=== PATIENT | female | born 1990 | race American Indian/Alaskan Native ===

== ENCOUNTER 2018-12-26 17:01 | Emergency (ER) | payer BC, OTHER ==
--- NOTE | 2018-12-26 17:47 | EDM.PDOC ---
ED HPI GENERAL MEDICAL PROBLEM - General Chief Complaint: Cardiovascular Problem Stated Complaint: HIGH BLOOD PRESSURE Time Seen by Provider: 12/26/18 17:38 Source of Information: Reports: Patient History Limitations: Reports: No Limitations - History of Present Illness INITIAL COMMENTS - FREE TEXT/NARRATIVE: HISTORY AND PHYSICAL: History of present illness: Patient is a 28-year-old female presents to the ED today for concern of feeling anxious and concerned about her blood pressure. Patient states she delivered a baby about a month 20 month and half ago and have preeclampsia. States that since then, she feels anxious about her blood pressure and checked it today at work and it was slightly high so she decided to come into the ED. Patient states she also took a first dose of Flagyl today and forgot to take her antianxiety medication today. Patient does express that she thinks her underlying anxiety is the main cause of her symptoms today. Patient states she did call the clinic today because she felt that the Flagyl was causing her to feel "off" and they had switched her to vaginal suppository Flagyl today. Patient states she has been following accordingly with her SECURITY ASSOCIATE for the plan of care and follow-up after delivery. Patient denies fever, chills, chest pain, shortness of breath, or cough. Denies headache, neck stiff ness, change in vision, syncope, or near syncope. Denies nausea, vomiting, abdominal pain, diarrhea, constipation, or dysuria. Has not noted any blood in urine or stool. Patient has been eating and drinking appropriately. Review of systems: As per history of present illness and below otherwise all systems reviewed and negative. Past medical history: As per history of present illness and as reviewed below otherwise noncontributory. Surgical history: As per history of present illness and as reviewed below otherwise noncontributory. Social history: See social history for further information Family history: As per history of present illness and as reviewed below otherwise noncontributory. Physical exam: General: Patient is alert, oriented, and in no acute distress. Patient sitting comfortably on exam table. HEENT: Atraumatic, normocephalic, pupils equal and reactive bilaterally, negative for conjunctival pallor or scleral icterus, mucous membranes moist, TMs normal bilaterally, throat clear, neck supple, nontender, trachea midline. No drooling or trismus noted. No meningeal signs. No hot potato voice noted. Lungs: Clear to auscultation, breath sounds equal bilaterally, chest nontender. Heart: S1S2, regular rate and rhythm without overt murmur Abdomen: Soft, nondistended, nontender. Negative for masses or hepatosplenomegaly. Negative for costovertebral tenderness. Pelvis: Stable nontender. Genitourinary: Deferred. Rectal: Deferred. Skin: Intact, warm, dry. No lesions or rashes noted. Extremities: Atraumatic, negative for cords or calf pain. Neurovascular unremarkable. Neuro: Awake, alert, oriented. Cranial nerves II through XII unremarkable. Cerebellum unremarkable. Motor and sensory unremarkable throughout. Exam nonfocal. Notes: Discussed the importance for follow-up with primary care provider. Voices understanding and is agreeable to plan of care. Denies any further questions or concerns at this time. Diagnostics: CBC, CMP, UA, TSH, EKG Therapeutics: None Prescription: None Impression: Medical screening exam history of anxiety Plan: 1. You can alternate ibuprofen or Tylenol as directed for pain and discomfort. 2. Follow-up with your SECURITY ASSOCIATE and primary care provider as discussed. 3. Return to the ED as needed and as discussed. Definitive disposition and diagnosis as appropriate pending reevaluation and review of above. Headache Pain Score (Numeric/FACES): 1 - Related Data Allergies Allergy/AdvReac Type Severity Reaction Status Date / Time adhesive tape Allergy Rash Verified 12/26/18 17:21 cefaclor [From Ceclor] Allergy Rash Verified 12/26/18 17:21 Home Meds: Home Meds Acetaminophen [Tylenol Extra Strength] 500 mg PO Q4H PRN 08/10/18 [History] Cetirizine [ZyrTEC] 10 mg PO DAILY 08/10/18 [History] Desvenlafaxine Succinate [Desvenlafaxine Succinate ER] 100 mg PO DAILY 08/10/18 [History] LORazepam 1 mg PO ASDIRECTED PRN 08/10/18 [History] Lansoprazole [Prevacid] 30 mg PO DAILY 08/10/18 [History] Elmiron 100 mg PO DAILY 12/26/18 [History] Levonorgestrel [Kyleena] 1 dose IUTERINE ONETIME 12/26/18 [History] metroNIDAZOLE [Flagyl] 500 mg PO BID 12/26/18 [History] Past Medical History HEENT History: Reports: None Other HEENT History: wears glasses/contacts Cardiovascular History: Reports: Hypertension, PVD Other Cardiovascular History: hypertension during Respiratory History: Reports: Asthma Other Respiratory History: exercise induced- does not use inhaler Gastrointestinal History: Reports: Chronic Diarrhea, GERD, Inflammatory Bowel Disease Genitourinary History: Reports: Other (See Below) Other Genitourinary History: Interstitial cystitis SECURITY ASSOCIATE History: Reports: Other SECURITY ASSOCIATE History: hx of pre-eclampsia Musculoskeletal History: Reports: Fibromyalgia Neurological History: Reports: Migraines Other Neuro History: headaches/migraines due to Fibromyalgia Psychiatric History: Reports: Anxiety, Depression Endocrine/Metabolic History: Reports: None Hematologic History: Reports: None Immunologic History: Reports: None Oncologic (Cancer) History: Reports: None Dermatologic History: Reports: None Other Dermatologic History: acne - Infectious Disease History Infectious Disease History: Reports: Chicken Pox, Shingles - Past Surgical History Head Surgeries/Procedures: Reports: None HEENT Surgical History: Reports: Adenoidectomy, Tonsillectomy, Other (See Below) Respiratory Surgical History: Reports: None GI Surgical History: Reports: None, Cholecystectomy Endocrine Surgical History: Reports: None Oncologic Surgical History: Reports: None Social & Family History - Family History Family Medical History: Noncontributory HEENT: Reports: None Cardiac: Reports: Hypertension Respiratory: Reports: None GI: Reports: None : Reports: None OBGYN: Reports: None Musculoskeletal: Reports: None Neurological: Reports: None Psychiatric: Reports: Emotional Problems Endocrine/Metabolic: Reports: None, Other (See Below) Other Endocrine/Metabolic Family History: Hypoglycemia Hematologic: Reports: None Immunologic: Reports: None Dermatologic: Reports: None Oncologic: Reports: Other (See Below) Other Oncologic Family History: Rectal cancer that metastasize to lungs - Tobacco Use Smoking Status *Q: Current Every Day Smoker Years of Tobacco use: 10 Packs/Tins Daily: 1 - Caffeine Use Caffeine Use: Reports: Coffee, Soda - Recreational Drug Use Recreational Drug Use: No ED ROS GENERAL - Review of Systems Review Of Systems: ROS reveals no pertinent complaints other than HPI. ED EXAM, GENERAL - Physical Exam Exam: See Below (See dictation) Course - Vital Signs Last Recorded V/S: Last Vital Signs Temp 37.3 C 12/26/18 17:17 Pulse 79 12/26/18 17:17 Resp 18 12/26/18 17:17 BP 149/93 H 12/26/18 17:17 Pulse Ox 100 12/26/18 17:17 - Orders/Labs/Meds Orders: Active Orders 24 hr Category Date Time Status EKG 12 Lead [EKG Documentation Completion] [RC] STAT Care 12/26/18 17:42 Active Labs: Laboratory Tests 12/26/18 12/26/18 Range/Units 17:53 17:53 WBC 11.15 H (4.0-11.0) K/uL RBC 4.78 (4.30-5.90) M/uL Hgb 13.3 (12.0-16.0) g/dL Hct 42.0 (36.0-46.0) % MCV 87.9 (80.0-98.0) fL MCH 27.8 (27.0-32.0) pg MCHC 31.7 (31.0-37.0) g/dL RDW Std Deviation 47.0 (28.0-62.0) fl RDW Coeff of Godwin 15 (11.0-15.0) % Plt Count 370 (150-400) K/uL MPV 10.00 (7.40-12.00) fL Neut % (Auto) 59.5 (48.0-80.0) % Lymph % (Auto) 31.5 (16.0-40.0) % Letcher % (Auto) 7.4 (0.0-15.0) % Eos % (Auto) 1.3 (0.0-7.0) % Baso % (Auto) 0.3 (0.0-1.5) % Neut # (Auto) 6.6 H (1.4-5.7) K/uL Lymph # (Auto) 3.5 H (0.6-2.4) K/uL Letcher # (Auto) 0.8 (0.0-0.8) K/uL Eos # (Auto) 0.1 (0.0-0.7) K/uL Baso # (Auto) 0.0 (0.0-0.1) K/uL Nucleated RBC % 0.0 /100WBC Nucleated RBCs # 0 K/uL Sodium 140 (136-145) mmol/L Potassium 3.8 (3.5-5.1) mmol/L Chloride 101 (98-107) mmol/L Carbon Dioxide 27.7 (21.0-32.0) mmol/L BUN 8 (7.0-18.0) mg/dL Creatinine 0.8 (0.6-1.0) mg/dL Est Cr Clr Drug Dosing 88.79 mL/min Estimated GFR (MDRD) > 60.0 ml/min Glucose 98 (74-106) mg/dL Calcium 9.7 (8.5-10.1) mg/dL Total Bilirubin 0.2 (0.2-1.0) mg/dL AST 18 (15-37) IU/L ALT 15 (14-63) IU/L Alkaline Phosphatase 98 (46-116) U/L Total Protein 8.1 (6.4-8.2) g/dL Albumin 4.3 (3.4-5.0) g/dL Globulin 3.8 (2.6-4.0) g/dL Albumin/Globulin Ratio 1.1 (0.9-1.6) TSH 3rd Generation 1.23 (0.36-3.74) uIU/mL Departure - Departure Time of Disposition: 19:10 Disposition: Home, Self-Care 01 Clinical Impression: Encounter for medical screening examination Referrals: PCP,None [Primary Care Provider] - Forms: ED Department Discharge Additional Instructions: The following information is given to patients seen in the emergency department who are being discharged to home. This information is to outline your options for follow-up care. We provide all patients seen in our emergency department with a follow-up referral. The need for follow-up, as well as the timing and circumstances, are variable depending upon the specifics of your emergency department visit. If you don't have a primary care physician on staff, we will provide you with a referral. We always advise you to contact your personal physician following an emergency department visit to inform them of the circumstance of the visit and for follow-up with them and/or the need for any referrals to a consulting specialist. The emergency department will also refer you to a specialist when appropriate. This referral assures that you have the opportunity for follow-up care with a specialist. All of these measure are taken in an effort to provide you with optimal care, which includes your follow-up. Under all circumstances we always encourage you to contact your private physician who remains a resource for coordinating your care. When calling for follow-up care, please make the office aware that this follow-up is from your recent emergency room visit. If for any reason you are refused follow-up, please contact the [facility] Emergency Department at and asked to speak to the emergency department charge nurse. [facility] [address] [place] [address] [facility] [address] [place] [address] 1. You can alternate ibuprofen or Tylenol as directed for pain and discomfort. 2. Follow-up with your SECURITY ASSOCIATE and primary care provider as discussed. 3. Return to the ED as needed and as discussed. - My Orders Last 24 Hours: My Active Orders 12/26/18 17:42 EKG 12 Lead [EKG Documentation Completion] [] STAT - Assessment/Plan Last 24 Hours: My Active Orders 12/26/18 17:42 EKG 12 Lead [EKG Documentation Completion] [RC] STAT
[2018-12-26 18:42] LABS: CHLORIDE,CL 101 mmol/L (98-107); SODIUM,NA 140 mmol/L (136-145)
== END 2018-12-26 19:20 | disposition home or self-care (01) ==
LOC: MW.ED 17:01
DX: Z13.9 Encounter for screening, unspecified (principal); I10 Essential (primary) hypertension; F17.210 Nicotine dependence, cigarettes, uncomplicated; F41.9 Anxiety disorder, unspecified; Z79.899 Other long term (current) drug therapy; Z88.8 Allergy status to other drugs, medicaments and biological substances; Z91.048 Other nonmedicinal substance allergy status
CPT/HCPCS: 36415; 80053; 84443; 85025; 93005; 99283; 99284-25

== ENCOUNTER 2019-08-21 14:40 | Emergency (ER) | payer BC ==
--- NOTE | 2019-08-21 15:54 | CR ---
INDICATION: Fall, slipped on ice TECHNIQUE: X-ray left ankle, three views COMPARISON: None available FINDINGS: There is soft tissue swelling laterally. Negative for acute fracture or dislocation. The ankle mortise is intact. No radiopaque foreign body is seen. IMPRESSION: Soft tissue swelling laterally without acute fracture or dislocation. Dictated by Faith Carrillo MD @ 08/21/2019 3:52:26 PM Dictated by: Faith Carrillo MD @ 08/21/2019 15:52:36 (Electronically Signed)
--- NOTE | 2019-08-21 15:59 | EDM.PDOC ---
ED HPI GENERAL MEDICAL PROBLEM - General Chief Complaint: Lower Extremity Injury/Pain Stated Complaint: POSSIBLE BROKEN LEFT ANKLE Time Seen by Provider: 08/21/19 14:57 - History of Present Illness INITIAL COMMENTS - FREE TEXT/NARRATIVE: HPI 28-year-old female presents with pain and swelling inferior to her left lateral malleolus that occurred after rolling her ankle last night while wearing high heeled boots in the setting of EtOH intoxication. Denies further injuries. Notes difficulty with ambulation. ROS with no recent constitutional symptoms. Exam HR 91, RR 17, BP 119/72, T 36.3C, SaO2 95% on room air. Gen: Pleasant, nontoxic-appearing, resting comfortably. HEENT: NC, AT, PEERL, EOMI. Resp: Unlabored respirations with a normal work of breathing. Card: Extremities warm and well perfused. GI: Non-distended. : Deferred MSK: left calf without visible or palpable trauma, muscle compartments soft and non-tender to palpation. Lopez test with plantar flexion. No tenderness to palpation over the tibia or fibula. Ankle with swelling inferior to the lateral malleolus, otherwise visually normal with ecchymosis inferior to the lateral malleolus. Mild tenderness over the posterior lateral malleolus, no tenderness over the posterior medial malleolus. Able to minimally dorsiflex, plantarflex, dagoberto, and invert the ankle with full functional range of motion . Foot visually normal without tenderness to palpation, specifically including the navicular bone and the base of the 5th metatarsal. Able flex and extend all toes. Muscle compartments of the foot are soft. Neurovascular 2+ DP and PT pulses. Sensation grossly intact to touch on the calf. Sensation intact to touch on all toes, first web space, the medial, lateral, plantar and dorsal surfaces of the foot. Neuro: alert and oriented 3, no facial asymmetry, vision and hearing WNL. Heme/Lymph: Deferred Skin: Normal color with no visible lesions (other than noted above). Psych: Mood and affect appropriate. XR L ankle: there is soft tissue swelling laterally. Negative for acute fracture or dislocation. The ankle more tests is intact. No radiopaque foreign body is seen. MDM Previous chart, nursing note, and vitals reviewed. A: 28-year-old female presents with pain and swelling inferior to her left lateral malleolus that occurred after rolling her ankle last night while wearing high heeled boots in the setting of EtOH intoxication. DDx & Evaluation: CMS intact, imaging without evidence of fracture or dislocation. Patient with a left ankle sprain. Patient already with crutches, provided with air splint, instructed to follow up with PCP and 4-5 days. NSAIDs for pain control. Impression: left ankle sprain. Left Ankle Pain Score (Numeric/FACES): 6 - Related Data Allergies Allergy/AdvReac Type Severity Reaction Status Date / Time adhesive tape Allergy Rash Verified 08/21/19 14:53 cefaclor [From Ceclor] Allergy Rash Verified 08/21/19 14:53 chocolate flavor Allergy Hives Verified 08/21/19 14:53 Home Meds: Home Meds Acetaminophen [Tylenol Extra Strength] 500 mg PO Q4H PRN 08/10/18 [History] Cetirizine [ZyrTEC] 10 mg PO DAILY 08/10/18 [History] Desvenlafaxine Succinate [Desvenlafaxine Succinate ER] 100 mg PO DAILY 08/10/18 [History] LORazepam 1 mg PO ASDIRECTED PRN 08/10/18 [History] Lansoprazole [Prevacid] 30 mg PO DAILY 08/10/18 [History] Elmiron 100 mg PO DAILY 12/26/18 [History] Levonorgestrel [Kyleena] 1 dose IUTERINE ONETIME 12/26/18 [History] Past Medical History HEENT History: Reports: None Other HEENT History: wears glasses/contacts Cardiovascular History: Reports: Hypertension, PVD Other Cardiovascular History: hypertension during Respiratory History: Reports: Asthma Other Respiratory History: exercise induced- does not use inhaler Gastrointestinal History: Reports: Chronic Diarrhea, GERD, Inflammatory Bowel Disease Genitourinary History: Reports: Other (See Below) Other Genitourinary History: Interstitial cystitis 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[employer]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 DESIGNER History: hx of pre-eclampsia Musculoskeletal History: Reports: Fibromyalgia Neurological History: Reports: Migraines Other Neuro History: headaches/migraines due to Fibromyalgia Psychiatric History: Reports: Anxiety, Depression Endocrine/Metabolic History: Reports: None Hematologic History: Reports: None Immunologic History: Reports: None Oncologic (Cancer) History: Reports: None Dermatologic History: Reports: None Other Dermatologic History: acne - Infectious Disease History Infectious Disease History: Reports: Chicken Pox - Past Surgical History Head Surgeries/Procedures: Reports: None HEENT Surgical History: Reports: Adenoidectomy, Tonsillectomy, Other (See Below) Respiratory Surgical History: Reports: None GI Surgical History: Reports: None, Cholecystectomy Female Surgical History: Reports: Section Endocrine Surgical History: Reports: None Oncologic Surgical History: Reports: None Social & Family History - Family History Family Medical History: Noncontributory HEENT: Reports: None Cardiac: Reports: Hypertension Respiratory: Reports: None GI: Reports: None : Reports: None OBGYN: Reports: None Musculoskeletal: Reports: None Neurological: Reports: None Psychiatric: Reports: Emotional Problems Endocrine/Metabolic: Reports: None, Other (See Below) Other Endocrine/Metabolic Family History: Hypoglycemia Hematologic: Reports: None Immunologic: Reports: None Dermatologic: Reports: None Oncologic: Reports: Other (See Below) Other Oncologic Family History: Rectal cancer that metastasize to lungs - Tobacco Use Smoking Status *Q: Current Every Day Smoker Years of Tobacco use: 12 Packs/Tins Daily: 1 - Caffeine Use Caffeine Use: Reports: Coffee, Energy Drinks, Soda, Tea - Recreational Drug Use Recreational Drug Use: No Review of Systems - Review of Systems Review Of Systems: See Below ED EXAM, GENERAL - Physical Exam Exam: See Below Course - Vital Signs Last Recorded V/S: Last Vital Signs Temp 36.3 C 08/21/19 14:54 Pulse 91 08/21/19 14:54 Resp 17 08/21/19 14:54 BP 118/72 08/21/19 14:54 Pulse Ox 95 08/21/19 14:54 Departure - Departure Time of Disposition: 15:58 Disposition: Home, Self-Care 01 Clinical Impression: Ankle sprain - Discharge Information Referrals: PCP,None [Primary Care Provider] - Additional Instructions: You were in seen in the [facility] Emergency Department for evaluation of injuries to her left ankle, your found have a sprain. Please use your crutches and air splint. You may use ibuprofen and acetaminophen instructed below. Please read and follow all of the instructions below. Please follow up with your primary care physician and 4-5 days for repeat evaluation. When calling for follow-up care, please make the office aware that this follow-up is from your recent emergency room visit. If for any reason you are refused follow-up, please contact the [facility] Emergency Department at and asked to speak to the emergency department charge nurse. Your care today was limited to identifying and treating emergent medical problems only. Many people have subtle differences in their test results that require follow up with their outpatient physician(s) to correctly determine if this represents a normal variation or concerning abnormality with respect to your specific health. The care given to you today was limited to identifying and treating emergent medical problems - you need to request a copy of all of your medical records from today's visit and follow up with your outpatient physician(s) to review both today's visit and your overall health. If you have any new symptoms or if you are at all concerned about your health please return immediately to the emergency department. Ankle Sprain * You were diagnosed with an ankle sprain, these are most commonly injuries of the ligaments attaching your fibula to your ankle (labeled PTFL and ATFL below) . Based upon your exam today it is unclear how severely you injured these ligaments. * You should treat your injury with rest, gentle compression with Armond bandage, elevation when you are sitting or lying down, and reduction in weightbearing activity until your pain is significantly better. You may begin resuming physical activity as allowed by mild pain. * If you still have significant symptoms after 4-5 days please follow-up with your primary care provider. * Please use your crutches as needed. Please read the instructions below regarding crutch use. * You may take 600 mg of ibuprofen every 6 hours as needed for pain. You may take 1000 mg of acetaminophen every 6 hours for pain above that controlled by the ibuprofen. Please read the drug warnings below. Treatment Once your pain begins improving in your swelling has started decreasing you may find benefit from performing the following exercises 2-3 times daily: * Perform foot-ankle circles to improve the range of motion in your injured ligaments. [place] the foot at the ankle, moving the foot up and down by flexing and extending the ankle. Perform 20 rotations clockwise, then 20 rotations counterclockwise. The exercise is performed twice daily. * Please strengthen your foot by returning to normal walking as tolerated by pain. If you are unable to walk you may perform toe curls 3 times a day. Please return to the emergency department or promptly call your primary care doctor if you develop any of the following: * Significantly worsening pain. * Decreased sensation in your foot. * A cold or numb foot. * Fevers, chills, redness at the ankle or warmth on the skin at your ankle. * If you are otherwise concerned about your health. You make take over the counter Acetaminophen (Tylenol) and Ibuprofen (Motrin or Aleve) as directed below for relief of pain. Take 600 mg of ibuprofen (three 200 mg tablets) with a glass of water every 6-8 hours as needed for pain or fever. Take 1,000 mg of acetaminophen (two 500 mg tablets) with a glass of water every 6-8 hours as needed for pain. You can take these medications at the same time or on separate schedules. Do not take for more than 10 days. Do not take with alcohol or other acetaminophen containing medications. This medication may cause a mildly upset stomach, if so take it with a small snack. Stop taking it if you have persistent abdominal pain, heartburn, or any stomach pain. Do not take this medication if you have known ulcers. Please read the warnings at the end of this document regarding these medications. IBUPROFEN WARNING: This drug may infrequently cause serious (rarely fatal) bleeding from the stomach or intestines. Also, related drugs rarely have caused blood clots to form, resulting in heart attacks and strokes. This medication might also rarely cause similar problems. Talk to your doctor or pharmacist about the benefits and risks of treatment, as well as other possible medication choices. If you notice any of the following rare but very serious side effects, stop taking ibuprofen and seek immediate medical attention: black stools, persistent stomach/abdominal pain, vomit that looks like coffee grounds, chest pain, weakness on one side of the body, sudden vision changes, slurred speech. IBUPROFEN SIDE EFFECTS: Upset stomach, nausea, vomiting, heartburn, headache, diarrhea, constipation, drowsiness, and dizziness may occur. If any of these effects persist or worsen, notify your doctor or pharmacist promptly. If your doctor has directed you to use this medication, remember that he or she has judged that the benefit to you is greater than the risk of side effects. Many people using this medication do not have serious side effects. Tell your doctor immediately if any of these serious side effects occur: stomach pain, swelling of the hands or feet, sudden or unexplained weight gain, ringing in the ears ( tinnitus). Tell your doctor immediately if any of these unlikely but serious side effects occur: vision changes, rapid or pounding heartbeat, easy bruising or bleeding, difficult/painful swallowing. Tell your doctor immediately if any of these highly unlikely but very serious side effects occur: change in amount of urine, severe headache, very stiff neck, mental/mood changes, persistent sore throat or fever. This drug may rarely cause serious (possibly fatal) liver disease. If you notice any of the following highly unlikely but very serious side effects, stop taking ibuprofen and consult your doctor or pharmacist immediately: yellowing eyes and skin, dark urine, unusual/extreme tiredness. An allergic reaction to this drug is unlikely, but seek immediate medical attention if it occurs. Symptoms of an allergic reaction include: rash, itching/ swelling (especially of the face/tongue/throat), severe dizziness, trouble breathing. This is not a complete list of possible side effects. ACETAMINOPHEN SIDE EFFECTS: This drug usually has no side effects. If you do not have liver problems, the maximum dose of acetaminophen for adults is 4 grams per day (4000 milligrams). Taking more than the maximum daily amount may cause serious (possibly fatal) liver damage. Get medical help right away if you have any of the following symptoms of liver damage: persistent nausea/vomiting, extreme tiredness, stomach/abdominal pain, yellowing eyes/skin, dark urine. If you have liver problems, consult your doctor or pharmacist for a safe dosage of this medication. A very serious allergic reaction to this drug is rare. However , get medical help right away if you notice any symptoms of a serious allergic reaction, including: rash, itching/swelling (especially of the face/tongue/ throat), severe dizziness, trouble breathing. This is not a complete list of possible side effects. If you notice other effects not listed above, contact your doctor or pharmacist. DRUG INTERACTIONS: Your healthcare professionals (e.g., doctor or pharmacist) may already be aware of any possible drug interactions and may be monitoring you for it. Do not start, stop or change the dosage of any medicine before checking with them first. This drug should not be used with the following medications because very serious interactions may occur: cidofovir, ketorolac. If you are currently using any of these medications listed above, tell your doctor or pharmacist before starting ibuprofen. Before using this medication, tell your doctor or pharmacist of all prescription and nonprescription/herbal products you may use, especially of: anti-platelet drugs (e.g., cilostazol, clopidogrel), oral bisphosphonates (e.g., alendronate), other medications for arthritis (e.g., aspirin, methotrexate), "blood thinners" (e.g., enoxaparin, heparin, warfarin), corticosteroids (e.g., prednisone), cyclosporine, desmopressin, high blood pressure drugs (including ARMOND inhibitors such as captopril, angiotensin II receptor antagonists such as losartan, and beta- blockers such as metoprolol), lithium, pemetrexed, "water pills" (diuretics such as furosemide, hydrochlorothiazide, triamterene). Check all prescription and nonprescription medicine labels carefully for other pain/fever drugs ( NSAIDs such as aspirin, celecoxib, naproxen). These drugs are similar to ibuprofen, so taking one of these drugs while also taking ibuprofen may increase your risk of side effects. Consult your doctor or pharmacist for more details. However, if your doctor has prescribed low doses of aspirin to prevent heart attack or stroke (usually at dosages of 81-325 milligrams a day), you should continue to take the aspirin. Daily use of ibuprofen may decrease aspirin 's ability to prevent heart attack/stroke. Talk to your doctor about using a different medication (e.g., acetaminophen) to treat pain/fever. If you must take ibuprofen, talk to your doctor about possibly taking immediate-release aspirin (not enteric-coated) while also taking the ibuprofen dose apart from your aspirin dose. Do not increase your daily dose of aspirin or change the way you take aspirin/other medications without your doctor's approval. This document does not contain all possible interactions. Therefore, before using this product, tell your doctor or pharmacist of all the products you use. Keep a list of all your medications with you, and share the list with your doctor and pharmacist. Crutch Use Instructions Setting Up the Crutches: Secure the arm pads and hand mva still operator prior to use. Tighten all hardware ( ie. screws and wing nuts) at least once per week. Clean the crutch tips of livier and dirt to minimize slipping. Have someone assist you until you master the technique of crutch use. Remove loose rugs and electrical cords from all potential paths to avoid tripping and falling. Replace crutch tips if they should wear out. Be careful on wet indoor surfaces which may be extremely slick. To walk with Crutches: Put your crutches under your arms and press them against your body. Make sure to bear your weight on your hands, not under your arms. Move the crutches ahead of you approximately 12 inches. Push down on the mva still operator as you step slightly past the crutches, leading with the GOOD LEG. Advance the crutches forward approximately 12 inches; then continue. To get up from a seated position: Hold both crutches on affected side. Slide to the edge of the chair or seat. Push down on the arm of the chair on the good side. Stand up, then put the crutches under your arms. Press the arm pads into the body. To Sit Down: Back up to the chair or seat to within 2-3 inches. Put both crutches in your hand on the affected side, reach backwards for the chair or seat with the other hand. Lower yourself slowly into the chair, bending at the hips. To go upstairs: Start close to the bottom step, and push down with your hands. Step up to the first step, remembering to lead with your GOOD LEG. (Good Leg "UP") Next, step up to the same step with the other foot, making sure to keep the crutches with your affected limb. To go downstairs: Start at the edge of the step, keeping your hips beneath you. Slowly bring the crutches with your affected limb down to the next step. BAD LEG first down the stairs. (Bad Leg "Down") Be sure to bend at the hips and knees to prevent leaning too far forward, which could cause you to fall. If handrail is available, place both crutches in hand on unaffected side with rail on affected side. Advance hand on rail slightly and place crutches on lower stair. Then advance both legs simultaneously to next stair. Prescriptions: If you are uninsured or have financial difficulties with filling your prescription(s), you may consider using a free pharmacy discount service such as [employer] ([employer]) or [employer] ([employer]). These services allow you to search for a medication on your phone (or computer) and obtain a coupon that usually has a significant discount from the list kearney at a pharmacy. Your physician as well as [facility] does not have a financial relationship with either of these services. You may also wish to speak with your physician to determine if lower cost prescriptions are possible. Obtaining primary care: 1. [facility] provides [facility] (children), family medicine (children, adults, and some obstetrical care), and internal medicine (adults). Further specialty care is also available. Same day appointments are available. They may be contacted at [phone] and are open Monday through Monday 8 AM to 5 PM. The are located at [facility], [address] [place] [address]. 2. [facility] offers family medicine, internal medicine, women health, and further specialty care. [facility] may be contacted at [phone]. [facility] is located at [address] [facility] [address]. 3. If you have health insurance, please also contact your insurer for a list of accepting providers under your policy, you may contact these providers for further health care. Occupational health: Work related injuries may consider following up with [facility], . Occupational health services are located at [address] [place] [address] and are open Monday through Monday from 7: 30 am to 5:00 pm. Obstetrical and Gynecological Care: [facility], , Monday through Monday 8 AM to 5 PM. [address], [place] [address]. Eyecare: If you have an eye injury you should follow up with your retail account representative or with [facility], at [phone] or [phone] , they are located at [address] [place] [address]. [facility]la [facility]. [address] [place], [place]. Ph. [phone] [facility]uyler Disla DDS [place]. [address] Ph[address] Hernesto Garay DDS. 10 08/[address] [place] [address], [place], [place]. Ph. [phone] Juan Giraldo DDS. [address] [facility] 4 [place], [place]. Ph. [phone] [facility]. [address] [facility] [address] [place], [place]. Ph. Jon Camp DDS. [address] [facility]. Ph. [phone] [facility]. [address] [place], [place]. Ph. [phone] [facility]. [address] [place] [address], [place], [place]. Ph. [phone] [facility] [address] [place] [id number]. Ph. [phone] [facility]. [address] [place] [address] [address] [place]. Ph. [phone] [facility]. [address], [place], [place]. Ph. Sepsis Event Note - Evaluation Sepsis Screening Result: No Definite Risk - Focused Exam Vital Signs: Vital Signs Temp Pulse Resp BP Pulse Ox 08/21/19 14:54 36.3 C 91 17 118/72 95 Date Exam was Performed: 08/21/19 Time Exam was Performed: 15:58
== END 2019-08-21 16:07 | disposition home or self-care (01) ==
LOC: MW.ED 14:40
DX: S93.402A Sprain of unspecified ligament of left ankle, initial encounter (principal); F17.210 Nicotine dependence, cigarettes, uncomplicated; F32.9 Major depressive disorder, single episode, unspecified; I10 Essential (primary) hypertension; J45.909 Unspecified asthma, uncomplicated
CPT/HCPCS: 73610-26-LT; 73610-LT; 99283; 99283-25

== ENCOUNTER 2021-03-05 15:01 | Emergency (ER) | payer BC, OTHER ==
[2021-03-05] MEDS ORDERED: Sodium Chloride 0.9% 1,000 ML IV ONE (15:40)
[2021-03-05] MEDS ORDERED: Sodium Chloride 0.9% 10 ML Syringe FLUSH PRN (15:40)
[2021-03-05] MEDS ORDERED: Sodium Chloride 0.9% 2.5 ML Syringe FLUSH PRN (15:40)
--- NOTE | 2021-03-05 16:00 | EDM.PDOC ---
ED HPI GENERAL MEDICAL PROBLEM - General Chief Complaint: General Stated Complaint: SOB/DIZZY/BRAIN FOG Time Seen by Provider: 03/05/21 15:06 Headache Pain Score (Numeric/FACES): 4 - Related Data Allergies Allergy/AdvReac Type Severity Reaction Status Date / Time adhesive tape Allergy Rash Verified 03/05/21 15:18 cefaclor [From Ceclor] Allergy Rash Verified 03/05/21 15:18 chocolate flavor Allergy Hives Verified 03/05/21 15:18 Home Meds: Home Meds Elmiron 100 mg PO DAILY 12/26/18 [History] Past Medical History HEENT History: Reports: None Other HEENT History: wears glasses/contacts Cardiovascular History: Reports: Hypertension, PVD Other Cardiovascular History: hypertension during Respiratory History: Reports: Asthma Other Respiratory History: exercise induced- does not use inhaler Gastrointestinal History: Reports: Chronic Diarrhea, GERD, Inflammatory Bowel Disease Genitourinary History: Reports: Other (See Below) Other Genitourinary History: Interstitial cystitis ASSOCIATE PROFESSOR OF SURGERY History: Reports: Other ASSOCIATE PROFESSOR OF SURGERY History: hx of pre-eclampsia Musculoskeletal History: Reports: Fibromyalgia Neurological History: Reports: Migraines Other Neuro History: headaches/migraines due to Fibromyalgia Psychiatric History: Reports: Anxiety, Depression Endocrine/Metabolic History: Reports: None Hematologic History: Reports: None Immunologic History: Reports: None Oncologic (Cancer) History: Reports: None Dermatologic History: Reports: None Other Dermatologic History: acne - Infectious Disease History Infectious Disease History: Reports: Chicken Pox - Past Surgical History Head Surgeries/Procedures: Reports: None HEENT Surgical History: Reports: Adenoidectomy, Tonsillectomy, Other (See Below) Other HEENT Surgeries/Procedures: Surgery -sinus. [place] tooth extraction in 2008 Cardiovascular Surgical History: Reports: None Respiratory Surgical History: Reports: None GI Surgical History: Reports: None, Cholecystectomy Female Surgical History: Reports: Section Endocrine Surgical History: Reports: None Neurological Surgical History: Reports: None Oncologic Surgical History: Reports: None Social & Family History - Family History Family Medical History: No Pertinent Family History HEENT: Reports: None Cardiac: Reports: Hypertension Respiratory: Reports: None GI: Reports: None : Reports: None OBGYN: Reports: None Musculoskeletal: Reports: None Neurological: Reports: None Psychiatric: Reports: Emotional Problems Endocrine/Metabolic: Reports: None, Other (See Below) Other Endocrine/Metabolic Family History: Hypoglycemia Hematologic: Reports: None Immunologic: Reports: None Dermatologic: Reports: None Oncologic: Reports: Other (See Below) Other Oncologic Family History: Rectal cancer that metastasize to lungs - Tobacco Use Tobacco Use Status *Q: Current Every Day Tobacco User Years of Tobacco use: 12 Packs/Tins Daily: 1 - Caffeine Use Caffeine Use: Reports: None - Recreational Drug Use Recreational Drug Use: No #1 Interpretation EKG Interpretation Comments: EKG done at 1556 shows sinus rhythm heart rate 73 [place] 147 QT duration 435 axis [address] normal T impression normal Course - Vital Signs Last Recorded V/S: Last Vital Signs Temp 36.6 C 03/05/21 15:19 Pulse 69 03/05/21 18:40 Resp 16 03/05/21 18:40 BP 115/56 L 03/05/21 18:40 Pulse Ox 98 03/05/21 18:40 - Orders/Labs/Meds Labs: Laboratory Tests 03/05/21 03/05/21 03/05/21 Range/Units 15:16 15:44 15:44 WBC 9.45 (4.0-11.0) K/uL RBC 4.30 (4.30-5.90) M/uL Hgb 12.6 (12.0-16.0) g/dL Hct 38.5 (36.0-46.0) % MCV 89.5 (80.0-98.0) fL MCH 29.3 (27.0-32.0) pg MCHC 32.7 (31.0-37.0) g/dL RDW Std Deviation 40.9 (28.0-62.0) fl RDW Coeff of Godwin 13 (11.0-15.0) % Plt Count 380 (150-400) K/uL MPV 10.20 (7.40-12.00) fL Neut % (Auto) 60.9 (48.0-80.0) % Lymph % (Auto) 28.3 (16.0-40.0) % [place] % (Auto) 8.4 (0.0-15.0) % Eos % (Auto) 2.3 (0.0-7.0) % Baso % (Auto) 0.1 (0.0-1.5) % Neut # (Auto) 5.8 H (1.4-5.7) K/uL Lymph # (Auto) 2.7 H (0.6-2.4) K/uL [place] # (Auto) 0.8 (0.0-0.8) K/uL Eos # (Auto) 0.2 (0.0-0.7) K/uL Baso # (Auto) 0.0 (0.0-0.1) K/uL Nucleated RBC % 0.0 /100WBC Nucleated RBCs # 0 K/uL D-Dimer, Quantitative 0.29 (0.0-0.50) mg/L FEU Sodium (136-145) mmol/L Potassium (3.5-5.1) mmol/L Chloride (98-107) mmol/L Carbon Dioxide (21.0-32.0) mmol/L BUN (7.0-18.0) mg/dL Creatinine (0.6-1.0) mg/dL Est Cr Clr Drug Dosing mL/min Estimated GFR (MDRD) ml/min Glucose (74-106) mg/dL Calcium (8.5-10.1) mg/dL Total Bilirubin (0.2-1.0) mg/dL AST (15-37) IU/L ALT (14-63) IU/L Alkaline Phosphatase (46-116) U/L Troponin I (0.000-0.056) ng/mL Total Protein (6.4-8.2) g/dL Albumin (3.4-5.0) g/dL Globulin (2.6-4.0) g/dL Albumin/Globulin Ratio (0.9-1.6) TSH 3rd Generation (0.36-3.74) uIU/mL HCG, Qual (NEG) Urine Color YELLOW Urine Appearance SLT CLOUDY Urine pH 6.0 (5.0-8.0) Ur Specific [place] 1.025 (1.001-1.035) Urine Protein NEGATIVE (NEGATIVE) mg/dL Urine Glucose (UA) NEGATIVE (NEGATIVE) mg/dL Urine Ketones NEGATIVE (NEGATIVE) mg/dL Urine Occult Blood NEGATIVE (NEGATIVE) Urine Nitrite NEGATIVE (NEGATIVE) Urine Bilirubin NEGATIVE (NEGATIVE) Urine Urobilinogen 0.2 (<2.0) EU/dL Ur Leukocyte Esterase NEGATIVE (NEGATIVE) 03/05/21 03/05/21 Range/Units 15:44 15:44 WBC (4.0-11.0) K/uL RBC (4.30-5.90) M/uL Hgb (12.0-16.0) g/dL Hct (36.0-46.0) % MCV (80.0-98.0) fL MCH (27.0-32.0) pg MCHC (31.0-37.0) g/dL RDW Std Deviation (28.0-62.0) fl RDW Coeff of Godwin (11.0-15.0) % Plt Count (150-400) K/uL MPV (7.40-12.00) fL Neut % (Auto) (48.0-80.0) % Lymph % (Auto) (16.0-40.0) % [place] % (Auto) (0.0-15.0) % Eos % (Auto) (0.0-7.0) % Baso % (Auto) (0.0-1.5) % Neut # (Auto) (1.4-5.7) K/uL Lymph # (Auto) (0.6-2.4) K/uL [place] # (Auto) (0.0-0.8) K/uL Eos # (Auto) (0.0-0.7) K/uL Baso # (Auto) (0.0-0.1) K/uL Nucleated RBC % /100WBC Nucleated RBCs # K/uL D-Dimer, Quantitative (0.0-0.50) mg/L FEU Sodium 141 (136-145) mmol/L Potassium 3.8 (3.5-5.1) mmol/L Chloride 106 (98-107) mmol/L Carbon Dioxide 24.9 (21.0-32.0) mmol/L BUN 11 (7.0-18.0) mg/dL Creatinine 0.9 (0.6-1.0) mg/dL Est Cr Clr Drug Dosing 77.49 mL/min Estimated GFR (MDRD) > 60.0 ml/min Glucose 82 (74-106) mg/dL Calcium 9.0 (8.5-10.1) mg/dL Total Bilirubin 0.4 (0.2-1.0) mg/dL AST 20 (15-37) IU/L ALT 20 (14-63) IU/L Alkaline Phosphatase 58 (46-116) U/L Troponin I < 0.050 (0.000-0.056) ng/mL Total Protein 7.1 (6.4-8.2) g/dL Albumin 3.9 (3.4-5.0) g/dL Globulin 3.2 (2.6-4.0) g/dL Albumin/Globulin Ratio 1.2 (0.9-1.6) TSH 3rd Generation 0.58 (0.36-3.74) uIU/mL HCG, Qual NEGATIVE (NEG) Urine Color Urine Appearance Urine pH (5.0-8.0) Ur Specific [place] (1.001-1.035) Urine Protein (NEGATIVE) mg/dL Urine Glucose (UA) (NEGATIVE) mg/dL Urine Ketones (NEGATIVE) mg/dL Urine Occult Blood (NEGATIVE) Urine Nitrite (NEGATIVE) Urine Bilirubin (NEGATIVE) Urine Urobilinogen (<2.0) EU/dL Ur Leukocyte Esterase (NEGATIVE) Meds: Medications Discontinued Medications Generic Name Dose Route Start Last Admin Trade Name Freq PRN Reason Stop Dose Admin Diphenhydramine HCl 25 mg 03/05/21 17:05 03/05/21 17:17 Diphenhydramine 50 Mg/Ml Sdv IVPUSH 03/05/21 17:06 25 mg ONETIME ONE Administration Sodium Chloride 1,000 mls @ 999 mls/hr 03/05/21 15:40 03/05/21 15:43 Normal Saline IV 03/05/21 16:40 999 mls/hr BOLUS ONE Administration Ketorolac Tromethamine 30 mg 03/05/21 17:05 03/05/21 17:18 Ketorolac 30 Mg/Ml Sdv IM 03/05/21 17:06 30 mg ONETIME ONE Administration Metoclopramide HCl 10 mg 03/05/21 17:05 03/05/21 17:17 Metoclopramide 10 Mg/2 Ml Sdv IV 03/05/21 17:06 10 mg ONETIME ONE Administration Ondansetron HCl 4 mg 03/05/21 17:05 03/05/21 17:17 Ondansetron 4 Mg/2 Ml Sdv IVPUSH 03/05/21 17:06 4 mg ONETIME ONE Administration Sodium Chloride 10 ml 03/05/21 15:40 03/05/21 15:44 Sodium Chloride 0.9% 10 Ml Syringe FLUSH 10 ml ASDIRECTED PRN Administration Keep Vein Open Sodium Chloride 2.5 ml 03/05/21 15:40 03/05/21 15:44 Sodium Chloride 0.9% 2.5 Ml Syringe FLUSH 2.5 ml ASDIRECTED PRN Administration Keep Vein Open Departure - Departure Disposition: Home, Self-Care 01 Clinical Impression: Dizziness, Headache, Dyspnea - Discharge Information Instructions: Dizziness, [id number] Referrals: PCP,None [Primary Care Provider] - Forms: ED Department Discharge Additional Instructions: The following information is given to patients seen in the emergency department who are being discharged to home. This information is to outline your options for follow-up care. We provide all patients seen in our emergency department wi th a follow-up referral. The need for follow-up, as well as the timing and circumstances, are variable depending upon the specifics of your emergency department visit. If you don't have a primary care physician on staff, we will provide you with a referral. We always advise you to contact your personal physician following an emergency department visit to inform them of the circumstance of the visit and for follow-up with them and/or the need for any referrals to a consulting specialist. The emergency department will also refer you to a specialist when appropriate. This referral assures that you have the opportunity for follow-up care with a specialist. All of these measure are taken in an effort to provide you with optimal care, which includes your follow-up. Under all circumstances we always encourage you to contact your private physician who remains a resource for coordinating your care. When calling for follow-up care, please make the office aware that this follow-up is from your recent emergency room visit. If for any reason you are refused follow-up, please contact the [facility] Emergency Department at and asked to speak to the emergency department charge nurse. [facility] [address] [place] [id number] [address] [id number] 1. You can alternate ibuprofen and Tylenol as directed for pain and discomfort. 2. Encourage small but frequent sips of fluid to prevent dehydration. 3. Follow-up with primary care provider as discussed. Return to the ED as needed and as discussed. Sepsis Event Note (ED) - Evaluation Sepsis Screening Result: No Definite Risk
--- NOTE | 2021-03-05 16:59 | CT ---
INDICATION: Dizziness and headache for 3 days. TECHNIQUE: Noncontrast CT images were acquired through the brain. COMPARISON: None. FINDINGS: The ventricles and sulci are within normal limits for patient age. No mass effect or midline shift. The perez-white differentiation is maintained. No acute intracranial hemorrhage or pathologic extra-axial fluid collection. The globes are symmetric. The calvarium is intact. Minimal maxillary and right sphenoid sinus mucosal thickening. The mastoid air cells are clear. IMPRESSION: No acute intracranial hemorrhage or mass effect. Please note that all CT scans at this facility use dose modulation, iterative reconstruction, and/or weight-based dosing when appropriate to reduce radiation dose to as low as reasonably achievable. Dictated by Shaw Fulton MD @ 03/05/2021 4:57:[address] Shaw Fulton @ Mar 05 2021 4:57PM
[2021-03-05] MEDS ORDERED: diphenhydrAMINE 50 MG/ML SDV IVPUSH ONE (17:05)
[2021-03-05] MEDS ORDERED: Ketorolac 30 MG/ML SDV IM ONE (17:05)
[2021-03-05] MEDS ORDERED: Metoclopramide 10 MG/2 ML SDV IV ONE (17:05)
[2021-03-05] MEDS ORDERED: Ondansetron 4 MG/2 ML SDV IVPUSH ONE (17:05)
--- NOTE | 2021-03-05 17:51 | CR ---
For Patients: As a result of the Century Cures Act, medical imaging exams and procedure reports are released immediately into your electronic medical record. You may view this report before your referring provider. If you have questions, please contact your health care provider. INDICATION: Dizziness TECHNIQUE: Chest 1 view. COMPARISON: None. FINDINGS: Cardiovascular and mediastinum: Heart size and vasculature are normal in caliber and appearance. Mediastinum is within normal limits. Lungs and pleural space: Lungs are clear. No sign of infiltrate or mass. No sign of pleural effusion. No pneumothorax. Bones and soft tissues: No significant findings. IMPRESSION: Unremarkable chest. Dictated by: Stan Carrizales MD @ 03/05/2021 17:49:19 (Electronically Signed)
[2021-03-05 18:24] LABS: BLOOD UREA NITROGEN,BUN 11 mg/dL (7.0-18.0); CARBON DIOXIDE,CO2 24.9 mmol/L (21.0-32.0); CHLORIDE,CL 106 mmol/L (98-107); GLUCOSE RANDOM 82 mg/dL (74-106); POTASSIUM,K 3.8 mmol/L (3.5-5.1); SODIUM,NA 141 mmol/L (136-145)
--- NOTE | 2021-03-05 18:33 | EDM.PDOC ---
ED HPI GENERAL MEDICAL PROBLEM - General Chief Complaint: General Stated Complaint: SOB/DIZZY/BRAIN FOG Time Seen by Provider: 03/05/21 15:06 Source of Information: Reports: Patient History Limitations: Reports: No Limitations - History of Present Illness INITIAL COMMENTS - FREE TEXT/NARRATIVE: HISTORY AND PHYSICAL: History of present illness: Patient is a 30-year-old female who presents emergency room today with concern of headache, dizziness, and feeling short of breath over the past 1 week. Patient states that she has had migraines in the past but states that she has ne shorty had associated dizziness or shortness of breath so was concerned and came to the emergency room for further evaluation. Patient states that she is not necessarily having a difficult time with breathing but has the sensation like she cannot take a deep breath in which comes and goes throughout the day. Patient denies any head injury or trauma. Patient states her dizziness feels like a "brain fog ". Patient states she has a history of fibromyalgia but denies any other health history. She states she has an IUD 7 does not believe to be . Patient denies fever, chills, chest pain, or cough. Denies headache, neck stiff ness, change in vision, syncope, or near syncope. Denies nausea, vomiting, abdominal pain, diarrhea, constipation, or dysuria. Has not noted any blood in urine or stool. Patient has been eating and drinking appropriately. Review of systems: As per history of present illness and below otherwise all systems reviewed and negative. Past medical history: As per history of present illness and as reviewed below otherwise noncontributory. Surgical history: As per history of present illness and as reviewed below otherwise noncontributory. Social history: See social history for further information Family history: As per history of present illness and as reviewed below otherwise noncontributory. Physical exam: General: Patient is alert, oriented, and in no acute distress. Patient sitting comfortably on exam table. Vitals stable and reviewed by me HEENT: Atraumatic, normocephalic, pupils equal and reactive bilaterally, negative for conjunctival pallor or scleral icterus, mucous membranes moist, TMs normal bilaterally, throat clear, neck supple, nontender, trachea midline. No drooling or trismus noted. No meningeal signs. No hot potato voice noted. Lungs: Clear to auscultation, breath sounds equal bilaterally, chest nontender. Heart: S1S2, regular rate and rhythm without overt murmur Abdomen: Soft, nondistended, nontender. Negative for masses or hepatosplenomegaly. Negative for costovertebral tenderness. Pelvis: Stable nontender. Genitourinary: Deferred. Rectal: Deferred. Skin: Intact, warm, dry. No lesions or rashes noted. Extremities: Atraumatic, negative for cords or calf pain. Neurovascular unremarkable. Neuro: Awake, alert, oriented. Cranial nerves II through XII unremarkable. Cerebellum unremarkable. Motor and sensory unremarkable throughout. Exam nonfocal. Notes: Patient is a 30-year-old female who presents emergency room today with concern of headache, dizziness, and feeling like she cannot take a deep breath in/shortness of breath over the past 1 week worsening over the past 3 days. Upon arrival to the ED, patient is vitally stable and well-appearing on exam. Will obtain cardiac evaluation and reassess patient. See Dr. Flores's dictation for specific EKG interpretation. However, normal sinus rhythm without signs of STEMI or ischemic changes. Mild derangements of lab work today unremarkable. Troponin negative. Head CT shows no acute findings. Chest x-ray unremarkable. Upon reevaluation of patient, she remains vitally stable and well-appearing on exam. She does express improvement of her symptoms today in the ED. Strict return precautions thoroughly discussed with patient. Discussed importance for follow-up with a primary care provider. Voices understanding and is agreeable to plan of care. Denies any further questions or concerns at this time. Diagnostics: EKG, CBC, CMP, UA, serum hCG, chest x-ray, troponin, head CT, orthostatic vitals Therapeutics: Normal saline Prescription: None Impression: Headache, improved Dizziness Dyspnea, unspecified Plan: 1. You can alternate ibuprofen and Tylenol as directed for pain and discomfort. 2. Encourage small but frequent sips of fluid to prevent dehydration. 3. Follow-up with primary care provider as discussed. Return to the ED as needed and as discussed. Definitive disposition and diagnosis as appropriate pending reevaluation and r artemw of above. Headache Pain Score (Numeric/FACES): 4 - Related Data Allergies Allergy/AdvReac Type Severity Reaction Status Date / Time adhesive tape Allergy Rash Verified 03/05/21 15:18 cefaclor [From Ceclor] Allergy Rash Verified 03/05/21 15:18 chocolate flavor Allergy Hives Verified 03/05/21 15:18 Home Meds: Home Meds Elmiron 100 mg PO DAILY 12/26/18 [History] Past Medical History HEENT History: Reports: None Other HEENT History: wears glasses/contacts Cardiovascular History: Reports: Hypertension, PVD Other Cardiovascular History: hypertension during Respiratory History: Reports: Asthma Other Respiratory History: exercise induced- does not use inhaler Gastrointestinal History: Reports: Chronic Diarrhea, GERD, Inflammatory Bowel Disease Genitourinary History: Reports: Other (See Below) Other Genitourinary History: Interstitial cystitis [employer] History: Reports: 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-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 Musculoskeletal History: Reports: Fibromyalgia Neurological History: Reports: Migraines Other Neuro History: headaches/migraines due to Fibromyalgia Psychiatric History: Reports: Anxiety, Depression Endocrine/Metabolic History: Reports: None Hematologic History: Reports: None Immunologic History: Reports: None Oncologic (Cancer) History: Reports: None Dermatologic History: Reports: None Other Dermatologic History: acne - Infectious Disease History Infectious Disease History: Reports: Chicken Pox - Past Surgical History Head Surgeries/Procedures: Reports: None HEENT Surgical History: Reports: Adenoidectomy, Tonsillectomy, Other (See Below) Other HEENT Surgeries/Procedures: Surgery -sinus. [place] tooth extraction in 2008 Cardiovascular Surgical History: Reports: None Respiratory Surgical History: Reports: None GI Surgical History: Reports: None, Cholecystectomy Female Surgical History: Reports: Section Endocrine Surgical History: Reports: None Neurological Surgical History: Reports: None Oncologic Surgical History: Reports: None Social & Family History - Family History Family Medical History: No Pertinent Family History HEENT: Reports: None Cardiac: Reports: Hypertension Respiratory: Reports: None GI: Reports: None : Reports: None OBGYN: Reports: None Musculoskeletal: Reports: None Neurological: Reports: None Psychiatric: Reports: Emotional Problems Endocrine/Metabolic: Reports: None, Other (See Below) Other Endocrine/Metabolic Family History: Hypoglycemia Hematologic: Reports: None Immunologic: Reports: None Dermatologic: Reports: None Oncologic: Reports: Other (See Below) Other Oncologic Family History: Rectal cancer that metastasize to lungs - Tobacco Use Tobacco Use Status *Q: Current Every Day Tobacco User Years of Tobacco use: 12 Packs/Tins Daily: 1 - Caffeine Use Caffeine Use: Reports: None - Recreational Drug Use Recreational Drug Use: No ED ROS GENERAL - Review of Systems Review Of Systems: Comprehensive ROS is negative, except as noted in HPI. ED EXAM, GENERAL - Physical Exam Exam: See Below (see dictation) Course - Vital Signs Last Recorded V/S: Last Vital Signs Temp 98 F 03/05/21 15:19 Pulse 69 03/05/21 18:40 Resp 16 03/05/21 18:40 BP 115/56 L 03/05/21 18:40 Pulse Ox 98 03/05/21 18:40 - Orders/Labs/Meds Orders: Active Orders 24 hr Category Date Time Status Cardiac Monitoring [RC] . DIRECTED Care 03/05/21 15:40 Active EKG Documentation Completion [RC] STAT Care 03/05/21 15:40 Active Orthostatic Vital Signs [RC] ASDIRECTED Care 03/05/21 15:40 Active Sodium Chloride 0.9% [Saline Flush] Med 03/05/21 15:40 Active 10 ml FLUSH ASDIRECTED PRN Sodium Chloride 0.9% [Saline Flush] Med 03/05/21 15:40 Active 2.5 ml FLUSH ASDIRECTED PRN Saline Lock Insert [OM.PC] Stat Oth 03/05/21 15:40 Ordered Medication Orders Sodium Chloride (Sodium Chloride 0.9% 10 Ml Syringe) 10 ml FLUSH ASDIRECTED PRN PRN Reason: Keep Vein Open Last Admin: 03/05/21 15:44 Dose: 10 ml Documented by: [id number] Sodium Chloride (Sodium Chloride 0.9% 2.5 Ml Syringe) 2.5 ml FLUSH ASDIRECTED PRN PRN Reason: Keep Vein Open Last Admin: 03/05/21 15:44 Dose: 2.5 ml Documented by: [id number] Labs: Laboratory Tests 03/05/21 03/05/21 03/05/21 Range/Units 15:16 15:44 15:44 WBC 9.45 (4.0-11.0) K/uL RBC 4.30 (4.30-5.90) M/uL Hgb 12.6 (12.0-16.0) g/dL Hct 38.5 (36.0-46.0) % MCV 89.5 (80.0-98.0) fL MCH 29.3 (27.0-32.0) pg MCHC 32.7 (31.0-37.0) g/dL RDW Std Deviation 40.9 (28.0-62.0) fl RDW Coeff of Godwin 13 (11.0-15.0) % Plt Count 380 (150-400) K/uL MPV 10.20 (7.40-12.00) fL Neut % (Auto) 60.9 (48.0-80.0) % Lymph % (Auto) 28.3 (16.0-40.0) % [place] % (Auto) 8.4 (0.0-15.0) % Eos % (Auto) 2.3 (0.0-7.0) % Baso % (Auto) 0.1 (0.0-1.5) % Neut # (Auto) 5.8 H (1.4-5.7) K/uL Lymph # (Auto) 2.7 H (0.6-2.4) K/uL [place] # (Auto) 0.8 (0.0-0.8) K/uL Eos # (Auto) 0.2 (0.0-0.7) K/uL Baso # (Auto) 0.0 (0.0-0.1) K/uL Nucleated RBC % 0.0 /100WBC Nucleated RBCs # 0 K/uL D-Dimer, Quantitative 0.29 (0.0-0.50) mg/L FEU Sodium (136-145) mmol/L Potassium (3.5-5.1) mmol/L Chloride (98-107) mmol/L Carbon Dioxide (21.0-32.0) mmol/L BUN (7.0-18.0) mg/dL Creatinine (0.6-1.0) mg/dL Est Cr Clr Drug Dosing mL/min Estimated GFR (MDRD) ml/min Glucose (74-106) mg/dL Calcium (8.5-10.1) mg/dL Total Bilirubin (0.2-1.0) mg/dL AST (15-37) IU/L ALT (14-63) IU/L Alkaline Phosphatase (46-116) U/L Troponin I (0.000-0.056) ng/mL Total Protein (6.4-8.2) g/dL Albumin (3.4-5.0) g/dL Globulin (2.6-4.0) g/dL Albumin/Globulin Ratio (0.9-1.6) TSH 3rd Generation (0.36-3.74) uIU/mL HCG, Qual (NEG) Urine Color YELLOW Urine Appearance SLT CLOUDY Urine pH 6.0 (5.0-8.0) Ur Specific [place] 1.025 (1.001-1.035) Urine Protein NEGATIVE (NEGATIVE) mg/dL Urine Glucose (UA) NEGATIVE (NEGATIVE) mg/dL Urine Ketones NEGATIVE (NEGATIVE) mg/dL Urine Occult Blood NEGATIVE (NEGATIVE) Urine Nitrite NEGATIVE (NEGATIVE) Urine Bilirubin NEGATIVE (NEGATIVE) Urine Urobilinogen 0.2 (<2.0) EU/dL Ur Leukocyte Esterase NEGATIVE (NEGATIVE) 03/05/21 03/05/21 Range/Units 15:44 15:44 WBC (4.0-11.0) K/uL RBC (4.30-5.90) M/uL Hgb (12.0-16.0) g/dL Hct (36.0-46.0) % MCV (80.0-98.0) fL MCH (27.0-32.0) pg MCHC (31.0-37.0) g/dL RDW Std Deviation (28.0-62.0) fl RDW Coeff of Godwin (11.0-15.0) % Plt Count (150-400) K/uL MPV (7.40-12.00) fL Neut % (Auto) (48.0-80.0) % Lymph % (Auto) (16.0-40.0) % [place] % (Auto) (0.0-15.0) % Eos % (Auto) (0.0-7.0) % Baso % (Auto) (0.0-1.5) % Neut # (Auto) (1.4-5.7) K/uL Lymph # (Auto) (0.6-2.4) K/uL [place] # (Auto) (0.0-0.8) K/uL Eos # (Auto) (0.0-0.7) K/uL Baso # (Auto) (0.0-0.1) K/uL Nucleated RBC % /100WBC Nucleated RBCs # K/uL D-Dimer, Quantitative (0.0-0.50) mg/L FEU Sodium 141 (136-145) mmol/L Potassium 3.8 (3.5-5.1) mmol/L Chloride 106 (98-107) mmol/L Carbon Dioxide 24.9 (21.0-32.0) mmol/L BUN 11 (7.0-18.0) mg/dL Creatinine 0.9 (0.6-1.0) mg/dL Est Cr Clr Drug Dosing 77.49 mL/min Estimated GFR (MDRD) > 60.0 ml/min Glucose 82 (74-106) mg/dL Calcium 9.0 (8.5-10.1) mg/dL Total Bilirubin 0.4 (0.2-1.0) mg/dL AST 20 (15-37) IU/L ALT 20 (14-63) IU/L Alkaline Phosphatase 58 (46-116) U/L Troponin I < 0.050 (0.000-0.056) ng/mL Total Protein 7.1 (6.4-8.2) g/dL Albumin 3.9 (3.4-5.0) g/dL Globulin 3.2 (2.6-4.0) g/dL Albumin/Globulin Ratio 1.2 (0.9-1.6) TSH 3rd Generation 0.58 (0.36-3.74) uIU/mL HCG, Qual NEGATIVE (NEG) Urine Color Urine Appearance Urine pH (5.0-8.0) Ur Specific [place] (1.001-1.035) Urine Protein (NEGATIVE) mg/dL Urine Glucose (UA) (NEGATIVE) mg/dL Urine Ketones (NEGATIVE) mg/dL Urine Occult Blood (NEGATIVE) Urine Nitrite (NEGATIVE) Urine Bilirubin (NEGATIVE) Urine Urobilinogen (<2.0) EU/dL Ur Leukocyte Esterase (NEGATIVE) Meds: Medications Generic Name Dose Route Start Last Admin Trade Name Freq PRN Reason Stop Dose Admin Sodium Chloride 10 ml 03/05/21 15:40 03/05/21 15:44 Sodium Chloride 0.9% 10 Ml Syringe FLUSH 10 ml ASDIRECTED PRN Administration Keep Vein Open Sodium Chloride 2.5 ml 03/05/21 15:40 03/05/21 15:44 Sodium Chloride 0.9% 2.5 Ml Syringe FLUSH 2.5 ml ASDIRECTED PRN Administration Keep Vein Open Discontinued Medications Generic Name Dose Route Start Last Admin Trade Name Felipa PRN Reason Stop Dose Admin Diphenhydramine HCl 25 mg 03/05/21 17:05 03/05/21 17:17 Diphenhydramine 50 Mg/Ml Sdv IVPUSH 03/05/21 17:06 25 mg ONETIME ONE Administration Sodium Chloride 1,000 mls @ 999 mls/hr 03/05/21 15:40 03/05/21 15:43 Normal Saline IV 03/05/21 16:40 999 mls/hr BOLUS ONE Administration Ketorolac Tromethamine 30 mg 03/05/21 17:05 03/05/21 17:18 Ketorolac 30 Mg/Ml Sdv IM 03/05/21 17:06 30 mg ONETIME ONE Administration Metoclopramide HCl 10 mg 03/05/21 17:05 03/05/21 17:17 Metoclopramide 10 Mg/2 Ml Sdv IV 03/05/21 17:06 10 mg ONETIME ONE Administration Ondansetron HCl 4 mg 03/05/21 17:05 03/05/21 17:17 Ondansetron 4 Mg/2 Ml Sdv IVPUSH 03/05/21 17:06 4 mg ONETIME ONE Administration Departure - Departure Time of Disposition: 18:31 Disposition: Home, Self-Care 01 Clinical Impression: Dizziness Headache Qualifiers: Headache type: unspecified Headache chronicity pattern: acute headache Intractability: not intractable Qualified Code(s): R51.9 - Headache, unspecified Dyspnea Qualifiers: Dyspnea type: unspecified Qualified Code(s): R06.00 - Dyspnea, unspecified - Discharge Information Instructions: Dizziness, [id number] Referrals: PCP,None [Primary Care Provider] - Forms: ED Department Discharge Additional Instructions: The following information is given to patients seen in the emergency department who are being discharged to home. This information is to outline your options for follow-up care. We provide all patients seen in our emergency department with a follow-up referral. The need for follow-up, as well as the timing and circumstances, are variable depending upon the specifics of your emergency department visit. If you don't have a primary care physician on staff, we will provide you with a referral. We always advise you to contact your personal physician following an emergency department visit to inform them of the circumstance of the visit and for follow-up with them and/or the need for any referrals to a consulting specialist. The emergency department will also refer you to a specialist when appropriate. This referral assures that you have the opportunity for follow-up care with a specialist. All of these measure are taken in an effort to provide you with optimal care, which includes your follow-up. Under all circumstances we always encourage you to contact your private physician who remains a resource for coordinating your care. When calling for follow-up care, please make the office aware that this follow-up is from your recent emergency room visit. If for any reason you are refused follow-up, please contact the [facility] Emergency Department at and asked to speak to the emergency department charge nurse. [facility] [address] [place] [address] [place] [address] 1. You can alternate ibuprofen and Tylenol as directed for pain and discomfort. 2. Encourage small but frequent sips of fluid to prevent dehydration. 3. Follow-up with primary care provider as discussed. Return to the ED as needed and as discussed. Sepsis Event Note (ED) - Evaluation Sepsis Screening Result: No Definite Risk - Focused Exam Vital Signs: Vital Signs Temp Pulse Resp BP Pulse Ox 03/05/21 18:40 69 16 115/56 L 98 03/05/21 18:28 73 115/57 L 98 03/05/21 17:05 75 16 120/60 98 03/05/21 15:19 98 F 85 16 129/76 98 - My Orders Last 24 Hours: My Active Orders 03/05/21 15:40 Cardiac Monitoring [RC] . DIRECTED EKG Documentation Completion [RC] STAT Orthostatic Vital Signs [RC] ASDIRECTED Sodium Chloride 0.9% [Saline Flush] 10 ml FLUSH ASDIRECTED PRN Sodium Chloride 0.9% [Saline Flush] 2.5 ml FLUSH ASDIRECTED PRN Saline Lock Insert [OM.PC] Stat - Assessment/Plan Last 24 Hours: My Active Orders 03/05/21 15:40 Cardiac Monitoring [RC] . DIRECTED EKG Documentation Completion [RC] STAT Orthostatic Vital Signs [RC] ASDIRECTED Sodium Chloride 0.9% [Saline Flush] 10 ml FLUSH ASDIRECTED PRN Sodium Chloride 0.9% [Saline Flush] 2.5 ml FLUSH ASDIRECTED PRN Saline Lock Insert [OM.PC] Stat
== END 2021-03-05 18:41 | disposition home or self-care (01) ==
LOC: MW.ED 15:01
DX: R51.9 Headache, unspecified (principal); R42 Dizziness and giddiness; I10 Essential (primary) hypertension; R06.02 Shortness of breath; Z91.048 Other nonmedicinal substance allergy status; Z91.018 Allergy to other foods; Z88.8 Allergy status to other drugs, medicaments and biological substances; Z72.0 Tobacco use
CPT/HCPCS: 70450; 71045; 80053; 81003; 84443; 84484; 84703; 85025; 85379; 93005; 96372; 96374; 96375; 99285; J1200; J1885; J2405; J2765; J7030; 93010; 99284

== ENCOUNTER 2021-04-21 10:48 | Emergency (ER) | payer BC, OTHER ==
--- NOTE | 2021-04-21 13:10 | EDM.PDOC ---
ED HPI GENERAL MEDICAL PROBLEM - General Chief Complaint: Head Injury Stated Complaint: HIT HER HEAD ON A BAR IN A PLAYGROUND Time Seen by Provider: 04/21/21 10:49 Source of Information: Reports: Patient History Limitations: Reports: No Limitations - History of Present Illness INITIAL COMMENTS - FREE TEXT/NARRATIVE: HISTORY AND PHYSICAL: History of present illness: Patient is a 30-year-old female who presents to the emergency room with complaints of head and neck pain. Patient has a longstanding history of dizziness/vertigo and has seen cardiology and neurology for this, currently taking propranolol is a treatment course. She states 3 days ago she was playing on the playground with her child and hit the back of her head/neck with a metal bar. Patient did not pass out or blackout. She does have a mild headache. States her dizziness feels different and was informed to come in for imaging. Patient denies any fever, chills, change in vision, syncope or near syncope. Denies any chest pain, back pain, shortness of breath or cough. Denies any GI or symptoms. Patient has been eating and drinking appropriately. Review of systems: As per history of present illness and below otherwise all systems reviewed and negative. Past medical history: As per history of present illness and as reviewed below otherwise noncontributory. Surgical history: As per history of present illness and as reviewed below otherwise noncontributory. Social history: See social history for further information Family history: As per history of present illness and as reviewed below otherwise noncontributory. Physical exam: General: Well developed and well nourished. Alert and orientated x 3. Nontoxic in appearance and in no acute distress. Vital signs are stable and have been reviewed by me. Nursing notes were reviewed. HEENT: Pain with palpation to the posterior scalp and occiput. No obvious injury is noted. Normocephalic, pupils equal and reactive bilaterally, negative for conjunctival pallor or scleral icterus, mucous membranes moist, TMs normal bilaterally, throat clear, neck supple, nontender, trachea midline. No drooling or trismus noted. No meningeal signs. No hot potato voice noted. Lungs: Clear to auscultation bilaterally. No wheezes, rales, or rhonchi. Chest nontender. Normal work of breathing, no accessory muscles used. Heart: S1S2, regular rate and rhythm without overt murmur, gallops, or rubs. No JVD. No peripheral edema Abdomen: Soft, nondistended, nontender. Normoactive bowel sounds. Negative for masses or costovertebral tenderness. C-spine/Back: No pinpoint vertebral tenderness upon palpation. No crepitus, step-offs or obvious deformities. Patient is ambulatory into the emergency room without difficulty or deficit. Able to rock back on heels and walk on toes. Denies any urinary or fecal incontinence. Denies any numbness, tingling or saddle paresthesia. No concerns of serious infection, fracture or cord compression, or cauda equina syndrome. Deep tendon reflexes brisk bilaterally. Skin: Intact, warm, dry. No lesions or rashes noted. Hematologic: No petechiae or purpra. Mucosa appropriate color and normal nail bed color and refill. Extremities: Atraumatic, moves all extremities per self without difficulty or deficits, negative for cords or calf pain. Neurovascular unremarkable. Neuro: Awake, alert, oriented. Cranial nerves II through XII unremarkable. Cerebellum unremarkable. Motor and sensory unremarkable throughout. Exam nonfocal. Psychiatric: Mood and affect are appropriate. Normal thought process. Answering questions appropriately. Please note that the patient was seen and evaluated during the 2019 SARS-CoV-2 novel coronavirus pandemic period. Community viral transmission is ongoing at time of this encounter and the emergency department is operating under pandemic response procedures. Medical Decision Making: Patient is a 30-year-old female who presents to the emergency room with complaints of posterior head and neck pain after an injury that occurred 3 days ago. She states she is concerned that she needs a head CT as her headache is unusual for her. Physical exam is unremarkable. She does have some mild tenderness to the posterior scalp at the occiput region. She declines wanting testing, stating she will sign a form to release of liability. I did offer to give her some medications for her headache, she states she has medications at home that have been helping and is here mainly for imaging. Declines wanting any lab work done. She states the dizziness is chronic and has seen neurology and cardiology and they are working for solution of this. Head and neck CT are unremarkable. I have talked with the patient about today's findings, in addition to providing specific details for plan of care. Reassessment at the time of disposition demonstrates that the patient is in no acute distress. The patient is stable for discharge, counseling was provided and we discussed in great detail signs and symptoms that would prompt them to return to the Emergency Department. Medication, follow up and supportive care measures were reviewed and discussed. Voices understanding and is agreeable to plan of care. Denies any further questions or concerns at this time. Diagnostics: Head and cervical spine CT Therapeutics: Declines Prescription: None Impression: Head injury Postconcussive headache Plan: 1. You were evaluated today on an emergent basis. Your CT scan of your head and neck are normal. Rest and avoid any strenuous cognitive activities (long screen time, reading, tv, etc...) until symptoms resolve. 2. You can alternate Tylenol and ibuprofen as needed for pain and fever management. 3. We encourage you to follow up with your primary care provider and/or recomme nded specialist in the next few days for re-evaluation and further care/management. 4. If your symptoms should worsen, new symptoms develop or any of the signs and symptoms we discussed should arise please return to the emergency room or call 911 (if needed). Definitive disposition and diagnosis as appropriate pending reevaluation and review of above. - Related Data Allergies Allergy/AdvReac Type Severity Reaction Status Date / Time adhesive tape Allergy Rash Verified 03/05/21 15:18 cefaclor [From Ceclor] Allergy Rash Verified 03/05/21 15:18 chocolate flavor Allergy Hives Verified 03/05/21 15:18 Home Meds: Home Meds Elmiron 100 mg PO DAILY 12/26/18 [History] Past Medical History HEENT History: Reports: None Other HEENT History: wears glasses/contacts Cardiovascular History: Reports: Hypertension, PVD Other Cardiovascular History: hypertension during Respiratory History: Reports: Asthma Other Respiratory History: exercise induced- does not use inhaler Gastrointestinal History: Reports: Chronic Diarrhea, GERD, Inflammatory Bowel Disease Genitourinary History: Reports: Other (See Below) Other Genitourinary History: Interstitial cystitis VP EMERGING MEDIA History: Reports: Other VP EMERGING MEDIA History: hx of pre-eclampsia Musculoskeletal History: Reports: Fibromyalgia Neurological History: Reports: Migraines Other Neuro History: headaches/migraines due to Fibromyalgia Psychiatric History: Reports: Anxiety, Depression Endocrine/Metabolic History: Reports: None Hematologic History: Reports: None Immunologic History: Reports: None Oncologic (Cancer) History: Reports: None Dermatologic History: Reports: None Other Dermatologic History: acne - Infectious Disease History Infectious Disease History: Reports: Chicken Pox - Past Surgical History Head Surgeries/Procedures: Reports: None HEENT Surgical History: Reports: Adenoidectomy, Tonsillectomy, Other (See Below) Other HEENT Surgeries/Procedures: Surgery -sinus. Alexander tooth extraction in 2008 Cardiovascular Surgical History: Reports: None Respiratory Surgical History: Reports: None GI Surgical History: Reports: Cholecystectomy Female Surgical History: Reports: Section Endocrine Surgical History: Reports: None Neurological Surgical History: Reports: None Oncologic Surgical History: Reports: None Social & Family History - Family History Family Medical History: No Pertinent Family History HEENT: Reports: None Cardiac: Reports: Hypertension Respiratory: Reports: None GI: Reports: None : Reports: None OBGYN: Reports: None Musculoskeletal: Reports: None Neurological: Reports: None Psychiatric: Reports: Emotional Problems Endocrine/Metabolic: Reports: None, Other (See Below) Other Endocrine/Metabolic Family History: Hypoglycemia Hematologic: Reports: None Immunologic: Reports: None Dermatologic: Reports: None Oncologic: Reports: Other (See Below) Other Oncologic Family History: Rectal cancer that metastasize to lungs - Tobacco Use Tobacco Use Status *Q: Current Every Day Tobacco User Years of Tobacco use: 3 Packs/Tins Daily: 1 - Caffeine Use Caffeine Use: Reports: None - Recreational Drug Use Recreational Drug Use: No ED ROS GENERAL - Review of Systems Review Of Systems: Comprehensive ROS is negative, except as noted in HPI. ED EXAM, HEAD INJURY - Physical Exam Exam: See Below (See dictation) Course - Vital Signs Last Recorded V/S: Last Vital Signs Temp 96.7 F L 04/21/21 12:22 Pulse 60 04/21/21 12:22 Resp 17 04/21/21 12:22 BP 113/72 04/21/21 12:22 Pulse Ox 99 04/21/21 12:22 Departure - Departure Time of Disposition: 13:16 Disposition: Home, Self-Care 01 Clinical Impression: Post-concussion headache Head injury Qualifiers: Encounter type: initial encounter Qualified Code(s): S09.90XA - Unspecified injury of head, initial encounter - Discharge Information Instructions: Post-Concussion Syndrome, Edut-yh-Darg Referrals: PCP,None [Primary Care Provider] - Forms: ED Department Discharge Additional Instructions: The following information is given to patients seen in the emergency department who are being discharged to home. This information is to outline your options for follow-up care. We provide all patients seen in our emergency department with a follow-up referral. The need for follow-up, as well as the timing and circumstances, are variable depending upon the specifics of your emergency department visit. If you don't have a primary care physician on staff, we will provide you with a referral. We always advise you to contact your personal physician following an emergency department visit to inform them of the circumstance of the visit and for follow-up with them and/or the need for any referrals to a consulting specialist. The emergency department will also refer you to a specialist when appropriate. This referral assures that you have the opportunity for follow-up care with a specialist. All of these measure are taken in an effort to provide you with o ptimal care, which includes your follow-up. Under all circumstances we always encourage you to contact your private physician who remains a resource for coordinating your care. When calling for follow-up care, please make the office aware that this follow-up is from your recent emergency room visit. If for any reason you are refused follow-up, please contact the [facility] Emergency Department at and asked to speak to the emergency department charge nurse. [facility] [address] [place] [id number] [place] [address] Thank you for choosing the [facility] emergency department in [place] for your medical needs today. It was a pleasure caring for you. Today you were seen in the emergency department for head injury. 1. You were evaluated today on an emergent basis. Your CT scan of your head and neck are normal. Rest and avoid any strenuous cognitive activities (long screen time, reading, tv, etc...) until symptoms resolve. 2. You can alternate Tylenol and ibuprofen as needed for pain and fever management. 3. We encourage you to follow up with your primary care provider and/or recommended specialist in the next few days for re-evaluation and further care/management. 4. If your symptoms should worsen, new symptoms develop or any of the signs and symptoms we discussed should arise please return to the emergency room or call 911 (if needed). Sepsis Event Note (ED) - Focused Exam Vital Signs: Vital Signs Temp Pulse Resp BP Pulse Ox 04/21/21 12:22 96.7 F L 60 17 113/72 99 04/21/21 11:57 72 14 118/82 100
--- NOTE | 2021-04-21 13:15 | CT ---
INDICATION: Pain. Hit head. Dizziness. TECHNIQUE: Volumetric helical scanning of the cervical spine was performed without contrast material. Sagittal and coronal reconstructions were also obtained. COMPARISON: Today`s head CT. FINDINGS: No fracture, subluxation or prevertebral soft tissue swelling is demonstrated. No curvature abnormality, disc space narrowing, or other abnormality is evident. IMPRESSION: Negative CT of the cervical spine. Please note that all CT scans at this facility use dose modulation, iterative reconstruction, and/or weight-based dosing when appropriate to reduce radiation dose to as low as reasonably achievable. Dictated by Kamar Callejas MD @ 04/21/2021 1:13:43 PM (Electronically Signed)
--- NOTE | 2021-04-21 13:17 | CT ---
INDICATION: Head injury. Pain and dizziness. TECHNIQUE: Scanning of the head was performed without IV contrast material. Coronal and sagittal reconstructions were obtained. COMPARISON: Today`s cervical spine CT. FINDINGS: No intracranial hemorrhage is demonstrated. No mass effect or ventricular enlargement is evident. No calvarial or obvious facial fracture is identified. The visualized paranasal and mastoid sinuses are clear. IMPRESSION: Negative noncontrast head CT. Please note that all CT scans at this facility use dose modulation, iterative reconstruction, and/or weight-based dosing when appropriate to reduce radiation dose to as low as reasonably achievable. Dictated by Kamar Callejas MD @ 04/21/2021 1:15:52 PM (Electronically Signed)
== END 2021-04-21 13:39 | disposition home or self-care (01) ==
LOC: MW.ED 10:48
DX: S09.90XA Unspecified injury of head, initial encounter (principal); F07.81 Postconcussional syndrome; G44.309 Post-traumatic headache, unspecified, not intractable; I10 Essential (primary) hypertension; Z91.048 Other nonmedicinal substance allergy status; Z88.8 Allergy status to other drugs, medicaments and biological substances; Z91.018 Allergy to other foods; Z72.0 Tobacco use; W22.09XA Striking against other stationary object, initial encounter
CPT/HCPCS: 70450; 70450-26; 72125; 72125-26; 99284-25